=== PATIENT | male | born 1950 | race Caucasian/White ===

== ENCOUNTER 2017-03-14 19:50 | Emergency (ER) | payer BC ==
[2017-03-14 19:57] VITALS: BP 149/84
--- NOTE | 2017-03-14 20:20 | ED Physician Documentation ---
History of Present Illness - Stated complaint Stated Complaint: L HAND LAC - Chief complaint Chief Complaint: General - History obtained from History obtained from: Patient, Family - History of Present Illness Timing: Today Pain level max: 0 Pain level now: 0 - Additonal information Additional information: Laceration to L 3rd digit on a boat trailer. 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 Review of Systems Neurologic: denies: Focal weakness, Numbness PD PAST MEDICAL HISTORY - Past Medical History Cardiovascular: Other Respiratory: None Neuro: None Endocrine/Autoimmune: None GI: None : None HEENT: None Psych: None Musculoskeletal: Other Derm: None - Past Surgical History Past Surgical History: Yes Ortho: Knee replacement (R) - Present Medications Home Medications: Ambulatory Orders Medication Instructions Recorded Confirmed Allopurinol [Zyloprim] 300 mg PO DAILY 04/06/14 04/06/14 Aspirin [Aspir 81] 81 mg PO DAILY 04/06/14 04/06/14 - Allergies Allergies/Adverse Reactions: Allergies Allergy/AdvReac Type Severity Reaction Status Date / Time No Known Drug Allergies Allergy Verified 04/06/14 08:19 - Living Situation Living Situation: reports: With family Living Arrangement: reports: At home - Immunizations Immunizations are current?: Yes Immunizations: TDAP current <10years PD ED PE NORMAL - Vitals Vital signs reviewed: Yes - General General: Alert and oriented X 3, No acute distress - Derm Derm: Warm and dry - Extremities Extremities: Other (L 3rd digit laceration. 1 cm, linear, subcutaneous. NVI. over the dorsum of the PIP) - Neuro Neuro: Alert and oriented X 3 - Psych Psych: Normal mood, Normal affect Results - Vitals Vitals: Vital Signs - 24 hr 03/14/17 19:53 Temperature 36.7 C Heart Rate 62 Respiratory 18 Rate Blood Pressure 149/84 H O2 Saturation 100 Oxygen O2 Source [With Activity] Room air O2 Source [Without Activity] Room air O2 Source Room air Procedures - Laceration (location) L 3rd digit Length in cm: 1 Wound type: Linear, Superficial, Clean Neurovascular status: Sensory intact, Motor intact, Vascular intact Skin layer closure: Dermabond Other: Patient tolerated well, No complications, Neurovascular intact, Tetanus UTD Complexity: Simple PD MEDICAL DECISION MAKING - ED course Complexity details: considered differential, d/w patient, d/w family ED course: Patient is a 66-year-old male who presents to the emergency department after a laceration to the left third digit, over the dorsum of the PIP joint. Washed and irrigated prior to arrival. Not bleeding here. He initially did not want any care, but decided that he would take Dermabond over the wound and then be placed into a foam finger splint. Warnings of infection given at bedside. Patient and family counseled regarding signs and symptoms for which I believe and urgent re-evaluation would be necessary. Patient with good understanding of and agreement to plan and is comfortable going home at this time This document was made in part using voice recognition software. While efforts are made to proofread this document, sound alike and grammatical errors may occur. Departure - Departure Disposition: 01 Home, Self Care Clinical Impression: Finger laceration Qualifiers: Encounter type: initial encounter Qualified Code(s): S61.219A - Laceration without foreign body of unspecified finger without damage to nail, initial encounter Condition: Good Instructions: ED Laceration Hand Follow-Up: Lavon Lin MD [Primary Care Provider] - Within 1 week (for wound check) Comments: Return if you worsen. Keep the wound clean. Wear the splint for the next several days. Discharge Date/Time: 03/14/17 20:26
== END 2017-03-14 20:26 | disposition home or self-care (01) ==
LOC: ED 19:50
DX: S61.213A Laceration without foreign body of left middle finger without damage to nail, initial encounter (principal); W45.8XXA Other foreign body or object entering through skin, initial encounter
CPT/HCPCS: 12001; 29130; 99283